=== PATIENT | male | born 1995 | race Caucasian/White ===

== ENCOUNTER 2018-06-30 18:03 | Emergency (ER) | payer OTHER ==
--- NOTE | 2018-06-30 18:58 | EDPHY ---
H & P Smoking Status: Never smoked Time Seen by Provider: 06/30/18 18:24 HPI/ROS: CHIEF COMPLAINT: Plantar puncture wound, retained foreign body HISTORY OF PRESENT ILLNESS: 22-year-old male presents to the emergency department with a puncture wound to the plantar aspect of his right foot. The patient was wearing socks and a piece of the wood floor board punctured his right foot. The incident happened approximately 1 hr prior to arrival. He has a retained piece of wood stool in his foot. Denies any other injury or trauma. He is unsure of his last tetanus shot. ROS: Denies numbness or tingling in his toes, pain in the right ankle. (Meera Adames) Past Medical/Surgical History: Leukemia (Meera Adames) Social History: Single and lives in [place] (Meera Adames) Physical Exam: On examination the patient has a large wooden sliver in the plantar aspect of his right foot that has both an entrance and exit wound. There is very minimal bleeding noted at the exit wound. Full range of motion of his toes. No palpable bony tenderness. No purulent drainage noted. (Meera Adames) Constitutional: Initial Vital Signs Temperature (C) 36.8 C 06/30/18 18:18 Heart Rate 100 06/30/18 18:18 Respiratory Rate 16 06/30/18 18:18 Blood Pressure 148/94 H 06/30/18 18:18 O2 Sat (%) 95 06/30/18 18:18 O2 Delivery Mode Room Air Allergies/Adverse Reactions: No Known Allergies Allergy (Unverified 06/30/18 18:18) Home Medications: Medication Instructions Recorded Cephalexin [Keflex] 500 mg PO QID #28 cap 06/30/18 MDM/Departure - MDM Medications Given: Discontinued Medications Cephalexin (Keflex 500 Mg Prepack#4) 1 btl TAKEHOME EDNOW ONE PRN Reason: Protocol Stop: 06/30/18 19:00 Last Admin: 06/30/18 19:04 Dose: 1 btl Diphtheria/Tetanus/Acell Pertussis (Boostrix) 0.5 ml IM .ONCE ONE Stop: 06/30/18 19:06 Last Admin: 06/30/18 19:13 Dose: 0.5 ml ED Course/Re-evaluation: Patient's tetanus shot was updated. The foreign body was easily removed, see procedure note. Thorough irrigation, bacitracin and dressing applied. Patient was given strict wound care precautions. Patient was given Keflex 500 mg he was take this 4 times daily for 1 week to prevent infection. Patient was also encouraged to soak his foot in warm water for 15-20 minutes every 2-3 hours especially over the next 2 days to help prevent infection. The case was discussed with Dr. Pugh who did not directly evaluate the patient but agrees treatment plan. (Meera Adames) I was not involved in the care of this patient. Dr. Pugh was the secondary supervising physician. (Lia Cardenas) - Depart Disposition: Home, Routine, Self-Care Clinical Impression: Foreign body in right foot Condition: Good Instructions: Cephalexin (By mouth), Soft Tissue Foreign Body (ED), Acute Wounds (ED) Additional Instructions: Soak foot in warm water 15-20 min every 3 hours x 2 days. Apply antibiotic ointment to wounds after soaking. Keflex as directed x 1 week. Return to the emergency department if you develop redness, swelling, increasing foot, purulent drainage or if you feel worse in any way. Prescriptions: Cephalexin [Keflex] 500 mg PO QID #28 cap Referrals: NONE *PRIMARY CARE P,. [Primary Care Provider] - As per Instructions
[2018-06-30] MEDS ORDERED: CEPHALEXIN 500MG PREPACK#4 BTL TAKEHOME ONE (18:59)
[2018-06-30] MEDS ORDERED: TDAP ADULT 0.5 ML INJ (BOOSTRIX) IM ONE (19:05)
[2018-06-30 19:19] VITALS: BP 139/82
== END 2018-06-30 19:25 | disposition home or self-care (01) ==
DX: S91.331A Puncture wound without foreign body, right foot, initial encounter (principal); S90.851A Superficial foreign body, right foot, initial encounter; Z23 Encounter for immunization; W45.8XXA Other foreign body or object entering through skin, initial encounter; Y92.9 Unspecified place or not applicable; Y93.9 Activity, unspecified; Y99.9 Unspecified external cause status